=== PATIENT | female | born 1975 | race Caucasian/White ===

== ENCOUNTER 2016-11-28 05:52 | Day surgery (SDC) | payer BC ==
[~2016-11-28] VITALS: Ht 152.4 cm; Wt 100.4 kg
[2016-11-28] VITALS (7 sets, daily range): BP systolic 114–134; BP diastolic 67–86; PULSE 60–82; RESP 12–17; TEMP 97–98.3; O2SAT 94–100; Ht 152.4 cm; Wt 100.4 kg
--- OUTSIDE RECORDS SUMMARY | 2016-11-28 05:57 | XMS REPORT | Continuity of Care Document ---
Author Author [facility] Organization [facility] Address Unknown Phone Unavailable Support Name Relationship Address Phone DEREK BURNETT MD Caregiver [facility] [address] [place] [address] Unavailable DONNA BARTHOLOMEW MD Caregiver [address] [place] [address] [phone] ALANA GIRALDO Next Of Kin [address] [place] [address] Insurance Providers Payer Name Policy Number Subscriber Name Relationship Self Pay Marco Giraldo 18 Self Advance Directives Directive Response Recorded Date/Time Advanced Directives Type None 04/11/14 6:01pm Problems Medical Problems Problem Onset Date Status Elevated bilirubin Unknown Active Pancreatitis Unknown Active Abdominal pain Unknown Active Medications Medication Dose Route Sig Days/Qty Instructions Order Date Discontinued Date Status Ferrous Sulfate 160 Mg PO DAILY 06/01/12 04/11/14 Discontinued Social History Social History Problem Response Recorded Date/Time Smoking Status Unknown if ever smoked 04/11/2014 6:01pm Hx Substance Use No 04/11/2014 6:01pm Hx Alcohol Use No 04/11/2014 6:01pm Query Response Start Date Stop Date Smoking Status Former smoker Hospital Discharge Instructions No hospital discharge instructions. Plan of Care No plan of care. Functional Status Query Response Date Recorded Physical Hygiene Self April 11, 2014 6:01pm Disabilities None April 11, 2014 6:01pm Devices Used None April 11, 2014 6:01pm Dressing Self April 11, 2014 6:01pm Ambulation Self April 11, 2014 6:01pm Diet Self April 11, 2014 6:01pm Mental Status Alert Oriented April 11, 2014 6:01pm Disabilities None April 11, 2014 6:01pm Devices Used None April 11, 2014 6:01pm Physical Hygiene Self April 11, 2014 6:01pm Dressing Self April 11, 2014 6:01pm Ambulation Self April 11, 2014 6:01pm Diet Self April 11, 2014 6:01pm Allergies, Adverse Reactions, Alerts Allergen Type Severity Reaction Status Last Updated Penicillin Allergy Unknown Active 04/11/14 Immunizations Name Given Type Hx Influenza Vaccination No Historical Hx Pneumococcal Vaccination No Historical Hx Influenza Vaccination No Historical Vital Signs Acute Vital Signs Vital Response Date/Time Temperature (Fahrenheit) 98.4 deg F (96.8 - 99.1) Temperature (Calculated Celsius) 36.75694 degrees C (36.0 - 37.3) Pulse Rate (adult) 99 bpm (60 - 100) Respiratory Rate 16 breaths/min (10 - 20) O2 Sat by Pulse Oximetry 96 % (90 - 100) Blood Pressure 105/61 mm Hg Height 5 ft 0 in Weight 218 lb Body Mass Index 42.0 kg/m^2 Results Test Source Date Result Interp. Ref. Range Comments Alanine Aminotransferase (ALT/SGPT) April 11, 2014 6:33pm 172 U/L H 9- 52 Albumin April 11, 2014 6:33pm 3.7 G/DL N 3.5-5.0 Albumin/Globulin Ratio April 11, 2014 6:33pm 1.0 RATIO L 1.1-2.2 Alkaline Phosphatase April 11, 2014 6:33pm 381 U/L H 38-126 Amylase Level April 11, 2014 6:33pm 176 U/L H 30-110 Anion Gap April 11, 2014 6:33pm 12 MEQ/L N 5-15 Aspartate Amino Transf (AST/SGOT) April 11, 2014 6:33pm 85 U/L H 14-36 BUN/Creatinine Ratio April 11, 2014 6:33pm 10 RATIO N 6-26 Band Neutrophils # April 11, 2014 6:33pm 0.9 T/MM3 - Band Neutrophils % April 11, 2014 6:33pm 8.0 % H 0-6 Basophils # (Auto) October 11, 2010 11:34am 0.0 T/MM3 N 0-0.2 Basophils (%) (Auto) October 11, 2010 11:34am 0.6 % N 0-2 Blood Urea Nitrogen April 11, 2014 6:33pm 6.0 MG/DL L 7-17 Calcium Level April 11, 2014 6:33pm 9.1 MG/DL N 8.4-10.2 Calculated Osmolality April 11, 2014 6:33pm 265 MOSM/KG N 261-280 Carbon Dioxide Level April 11, 2014 6:33pm 28 MEQ/L N 22-30 Chloride Level April 11, 2014 6:33pm 98 MEQ/L N 98-107 Cholesterol Level November 07, 2009 9:20am 147 MG/DL N 132-199 Cholesterol/HDL Ratio November 07, 2009 9:20am 3.0 RATIO N 0-4.0 Cord Arterial Bld Oxygen Saturation February 12, 2008 12:05pm 54.0 % - Has specimen been collected/obtained? Y Cord Arterial Blood Base Excess February 12, 2008 12:05pm -2.4 MMOL/L L -2.0 -2.0 Has specimen been collected/obtained? Y Cord Arterial Blood HCO3 February 12, 2008 12:05pm 21 MEQ/L - Has specimen been collected/obtained? Y Cord Arterial Blood Total CO2 February 12, 2008 12:05pm 22.4 - Has specimen been collected/obtained? Y Cord Blood PO2 February 12, 2008 12:05pm 28 MMHG - Has specimen been collected/obtained? Y Cord Blood Total CO2 February 12, 2008 12:05pm 33 MEQ/L - Has specimen been collected/obtained? Y Cord Blood pH February 12, 2008 12:05pm 7.420 - Has specimen been collected/obtained? Y Creatinine April 11, 2014 6:33pm 0.6 MG/DL L 0.7-1.2 Eosinophils # (Auto) October 11, 2010 11:34am 0.1 T/MM3 N 0-0.5 Eosinophils (%) (Auto) October 11, 2010 11:34am 1.3 % N 0-4 Free Thyroxine November 07, 2009 9:20am 0.85 NG/DL N 0.78-2.19 Globulin April 11, 2014 6:33pm 3.6 G/DL N 2.4-3.6 Glucose Level April 11, 2014 6:33pm 125 MG/DL H 65-110 Hematocrit April 11, 2014 6:33pm 36.5 % N 36-46 Hemoglobin April 11, 2014 6:33pm 11.9 GM/DL L 12-16 Hepatitis B Surface Ab Concentrat January 07, 2014 1:40pm Negative - LDL Cholesterol, Calculated November 07, 2009 9:20am 85.2 N 66-159 Lipase April 11, 2014 6:33pm 742 U/L H 23-300 Lymphocytes # (Auto) October 11, 2010 11:34am 1.8 T/MM3 N 1-4.8 Lymphocytes # (Manual) April 11, 2014 6:33pm 0.9 T/MM3 L 1-4.8 Lymphocytes % (Manual) April 11, 2014 6:33pm 8.0 % L 23-45 Lymphocytes (%) (Auto) October 11, 2010 11:34am 26.7 % N 23-45 Mean Corpuscular Hemoglobin April 11, 2014 6:33pm 28.3 UUG N 26-34 Mean Corpuscular Hemoglobin Concent April 11, 2014 6:33pm 32.6 GM/DL N 31-37 Mean Corpuscular Volume April 11, 2014 6:33pm 86.7 UM3 N 80-100 Mean Platelet Volume April 11, 2014 6:33pm 10.4 UM3 N 9.4-12.4 Measles/Mumps/Rubella Immunity January 07, 2014 1:40pm - - . <0.91= Negative. 0.91 - 1.09=Equivocal . >1.09=Positive Positive results suggest response to immunization or prior exposure. Measles IgG performed at [facility], [address] [place] [address] Road Mechanic Talita Rasmussen MD Monocytes # (Auto) October 11, 2010 11:34am 0.5 T/MM3 N 0-0.8 Monocytes # (Manual) April 11, 2014 6:33pm 1.3 T/MM3 H 0-0.8 Monocytes % (Manual) April 11, 2014 6:33pm 11.0 % H 0-9.0 Monocytes (%) (Auto) October 11, 2010 11:34am 7.4 % N 0-9.0 Mumps Virus IgG Antibody January 07, 2014 1:40pm Positive - Neutrophils # (Auto) October 11, 2010 11:34am 4.3 T/MM3 N 1.8-7.7 Neutrophils # (Manual) April 11, 2014 6:33pm 8.5 T/MM3 H 1.8-7.7 Neutrophils % (Manual) April 11, 2014 6:33pm 73.0 % H 33-66 Neutrophils (%) (Auto) October 11, 2010 11:34am 64.0 % N 33-66 Platelet Count April 11, 2014 6:33pm 215 T/MM3 N 130-400 Potassium Level April 11, 2014 6:33pm 3.9 MEQ/L N 3.6-5 RDW Standard Deviation April 11, 2014 6:33pm 43.3 FL N 36.9-50.2 Red Blood Count April 11, 2014 6:33pm 4.21 M/MM3 N 4.00-5.20 Rubella Screen January 07, 2014 1:40pm Positive - Rubeola (Measles) IgG Antibody January 07, 2014 1:40pm Positive - Sodium Level April 11, 2014 6:33pm 138 MEQ/L N 134-144 Thyroid Stimulating Hormone (TSH) November 07, 2009 9:20am 2.17 MIU/ML N 0.47-4.68 Total Bilirubin April 11, 2014 6:33pm 5.00 MG/DL H 0.20-1.30 Total Protein April 11, 2014 6:33pm 7.3 G/DL N 6.3-8.2 Triglycerides Level November 07, 2009 9:20am 64 MG/DL N 35-135 Urine Bacteria April 11, 2014 6:00pm Trace H - Has specimen been collected/obtained? Y Urine Bilirubin April 11, 2014 6:00pm 3+ H - Has specimen been collected/obtained? Y Urine Blood April 11, 2014 6:00pm 2+ H - Has specimen been collected/ obtained? Y Urine Collection Type April 11, 2014 6:00pm Voided-not cc-midstr - Has specimen been collected/obtained? Y Urine Color April 11, 2014 6:00pm [place] - Has specimen been collected/obtained? Y Urine Glucose (UA) April 11, 2014 6:00pm Negative - Has specimen been collected/obtained? Y Urine Ketones April 11, 2014 6:00pm Trace H - Has specimen been collected/obtained? Y Urine Leukocyte Esterase April 11, 2014 6:00pm Negative - Has specimen been collected/obtained? Y Urine Nitrite April 11, 2014 6:00pm Negative - Has specimen been collected/obtained? Y Urine Protein April 11, 2014 6:00pm 1+ H - Has specimen been collected /obtained? Y Urine RBC April 11, 2014 6:00pm 10-20 /HPF H - Has specimen been collected/obtained? Y Urine Specific [place] April 11, 2014 6:00pm 1.020 - Has specimen been collected/obtained? Y Urine Squamous Epithelial Cells April 11, 2014 6:00pm 0-5 - Has specimen been collected/obtained? Y Urine Turbidity April 11, 2014 6:00pm Clear - Has specimen been collected/obtained? Y Urine Urobilinogen April 11, 2014 6:00pm 0.2 EU/DL - Has specimen been collected/obtained? Y Urine WBC April 11, 2014 6:00pm None seen /HPF - Has specimen been collected/obtained? Y Urine pH April 11, 2014 6:00pm 6.5 - Has specimen been collected/ obtained? Y VLDL Cholesterol November 07, 2009 9:20am 12.8 MG/DL N 0-28 Varicella-Zoster IgG Antibody January 07, 2014 1:40pm Positive - White Blood Count April 11, 2014 6:33pm 11.6 T/MM3 H 4.5-11.0 Chemistry Specimen Hemolysis April 11, 2014 6:33pm < 15 0-25 0-25: No Hemolysis.26-70: Slight Hemolysis - can falsely elevate K and Urine Protein. 71-285: Moderate Hemolysis - can falsely elevate K, Troponin I, CA 19-9, PTH, CSF GLucose, and Urine Protein, and can falsely decrease Phenytoin. 286-999: Gross Hemolysis - can falsely elevate K, Troponin I, CA 19-9, PTH, CSF Glucose, and Urine Protine, and can falsely decrease Phenytoin. Recommend specimen recollection. Lab Scanned Report January 07, 2014 7:28pm LAB TEST FORM REQUEST [id number] - HDL Cholesterol Direct November 07, 2009 9:20am 49 MG/DL N 40-60 Turbidity April 11, 2014 6:33pm < 20 0-20 Glomerular Filtration Rate Calc April 11, 2014 6:33pm 111 - Icterus Index April 11, 2014 6:33pm < 2 0-7 TB Test (QFT) January 07, 2014 1:40pm Negative - Quantiferon TB Test performed at [facility], [address] [place] [address] Road Mechanic Talita Rasmussen MD Mumps IgG Antibody Index January 07, 2014 1:40pm 4.56 OD Ratio - Mumps IgG performed at [facility], [address] [place], [place] [address]Medical Director Talita Rasmussen MD Rubeola (Measles) IgG Ab Index January 07, 2014 1:40pm 1.41 OD Ratio - Varicella-Zoster IgG Ab Index Value January 07, 2014 1:40pm 1.49 OD Ratio - Varicella Zoster IGG performed at [facility], [address] [place] [address] Road Mechanic Talita Rasmussen MD Urine Culture Urine, Clean Catch Voided November 22, 2007 7:45am Mixed Gram Positive Organisms Procedures No known history of procedures. Encounters Encounter Location Date/Time Departed Emergency Room [facility] 04/11/14 5:45pm Recent Diagnosis
--- OUTSIDE RECORDS SUMMARY | 2016-11-28 05:58 | XMS REPORT | Continuity of Care Document ---
Author Author [facility] Organization [facility] Address Unknown Phone Unavailable Support Name Relationship Address Phone GUI DUFF MD Caregiver [address] [facility] [address] [place] [address] Unavailable GIOVANNA KELLY DO Caregiver [address] [place] [address] Unavailable FORREST ORTIZ Next Of Kin [address] [place] [address] Insurance Providers Guarantor Marco Giraldo Address [address] [place] [address] CP Email DENIED TO PORTAL Payer [facility] Policy Number [id number] Subscriber's Name Forrest Ortiz Relationship 01 Spouse Group Number [id number] Advance Directives Directive Response Recorded Date/Time Ordered Resuscitation Status Full Code 10/21/16 11:41am Resuscitation Documents on File No 10/22/16 5:58am DPOA for Healthcare Only No 10/22/16 5:58am Living Will No 10/22/16 5:58am Problems Active Problems Medical Problem Onset Date Status Abdominal pain Unknown Acute Abdominal pain Unknown Acute Abdominal pain Unknown Acute Elevated bilirubin Unknown Acute Elevated bilirubin Unknown Acute Pancreatitis Unknown Acute Viral illness Unknown Acute Past Problems Medical Problem Onset Date Back muscle spasm Unknown Carpal tunnel syndrome Unknown Viral illness Unknown Medications Current Home Medications Medication Dose Units Route Directions Days Qty Instructions Start Date Hydrocodone/Acetaminophen (Merom 5-325 Tablet) 5-325 Tablet 1-2 Tab Oral Every 6 Hours as needed for Pain 20 Tablet This medication contains Tylenol , do not take more than 3,000 mg of Tylenol in a 24 hr period. 10/22/16 Ibuprofen 200 Mg Tablet 2 Tab Oral Every 4 Hours as needed for Pain 07/24/16 Polyethylene Glycol 3350 (Miralax) 17 Gm Powd.pack 17 G Oral Daily as needed for Constipation 1 Bottle Take 17 Grams (1 capful), by mouth, once a day. 10/22/16 Past Home Medications Medication Directions Ordered Status Ferrous Sulfate (Slo-Fe) 160 Mg Tablet, 160 Mg Oral Daily 06/01/12 Discontinued Social History Social History Problem Response Recorded Date/Time Onset Date Status Reason for Hospitalization Rt CTR 10/22/2016 7:47am Not Applicable Not Applicable Chewing Tobacco Status No 10/22/2016 6:00am Not Applicable Not Applicable Hx Substance Use No 10/22/2016 6:00am Not Applicable Not Applicable Hx Alcohol Use No 10/22/2016 6:00am Not Applicable Not Applicable Has the pt used tobacco in the last 12 months Yes 10/22/2016 6:00am Not Applicable Not Applicable Query Response Start Date Stop Date Smoking Status Former smoker Hospital Discharge Instructions Instructions: Care Instructions: I was in the hospital because (patient own words): RIGHT CARPAL TUNNEL Discharge Diet: Resume your normal diet as tolerated. Discharge Activity: -Exercises are to be performed 2-3 times daily. -DO NOT lift any weight heavier than a coffee cup -Gentle range of motion of the wrist Follow Up Appointments: Follow up as scheduled. Pending Lab / Results: No Pending Lab Patient Instructions: DO NOT DRIVE, OPERATE MACHINERY, DRINK ALCOHOL, OR SIGN IMPORTANT PAPERS FOR 24 HOURS OR WHILE TAKING PAIN MEDICATIONS. Expected Signs/Symptoms: There will be pain at the incision site. Expect possible wrap swelling of the fingers. The aaron may be loosened if it feels too tight. Call your physician if you are unable to feel or move your fingers. Notify Physician If: You should contact our office if you develop significant drainage from the surgical incision, redness, or fever about 102 degrees. During Business Hours:: Contact the office at [phone] After Business Hours:: After office hours, please call [facility] at [phone] and have the ribbon hanking machine operator page the physician. Pain Management/Treatment: You will be given a prescription for pain medication. You will have post-surgical pain for the first week after surgery. An anti-inflammatory medication may also be taken (mobic, ibuprofen, or naproxen). Wound/Incision Care: Keep the dressing clean and dry. On post-op day #4 you may remove the dressing. The incision needs to stay dry until you follow up with your physician. You may shower. DO NOT apply creams or ointments (bacitracin, triple antibiotic) to the incisions. Do not soak the wrist in water or go swimming until your sutures are removed. Condition at time of discharge: Good Plan of Care Discharge Date 10/22/16 8:55am Prescriptions See Medication Section Functional Status Query Response Date Recorded Ability to complete ADL's impeded by No change October 22, 2016 5:58am Allergies, Adverse Reactions, Alerts Allergen Type Severity Reaction Status Last Updated Penicillin Allergy Unknown RASH Active 10/17/16 Immunizations Query Response on File Recorded Date/Time Hx Influenza Vaccination Y MAY 2016 10/22/16 6:00am Hx Pneumococcal Vaccination No 10/22/16 6:00am Hx Influenza Vaccination Y MAY 2016 10/22/16 6:00am DTaP Vaccine History UP TO DATE PER PT 07/24/16 6:10pm Influenza Vaccine Hx 06/0207/24/16 6:10pm Tetanus Diptheria Vaccine History UPT TO DATE PER PT 07/24/16 6:10pm Vital Signs Acute Vital Signs Vital Response Date/Time Temperature (Fahrenheit) 97.6 deg F (96.8 - 99.1) 10/22/2016 8:05am Temperature (Calculated Celsius) 36.86117 degrees C (36.0 - 37.3) 10/22/2016 8:05am Temperature Source Oral 10/22/2016 8:05am Pulse Rate (adult) 68 bpm (60 - 100) 10/22/2016 8:48am Respiratory Rate 16 breaths/min (10 - 20) 10/22/2016 8:48am O2 Sat by Pulse Oximetry 100 % (90 - 100) 10/22/2016 8:48am Oxygen Delivery Method Room Air 10/22/2016 8:48am Blood Pressure 109/59 mm Hg 10/22/2016 8:48am Blood Pressure Source Automatic Cuff 10/22/2016 8:48am Height (Feet) 5 feet 10/22/2016 5:52am Height (Inches) 0.00 inches 10/22/2016 5:52am Weight (Kilograms) 100.800 kg 10/22/2016 5:52am Body Mass Index (BMI) 43.4 10/22/2016 5:52am Results Laboratory Results Test Name Result Units Flags Reference Collection Date/Time Result Date/ Time Comments White Blood Count 8.9 T/MM3 4.5-11.0 07/24/2016 5:17pm 07/24/2016 5: 36pm Red Blood Count 4.34 M/MM3 4.00-5.20 07/24/2016 5:17pm 07/24/2016 5: 36pm Hemoglobin 12.5 GM/DL 12-16 07/24/2016 5:07/24/2016 5:36pm Hematocrit 39.0 % 36-46 07/24/2016 5:07/24/2016 5:36pm Mean Corpuscular Volume 89.9 UM3 80-100 07/24/2016 5:07/24/2016 5: 36pm Mean Corpuscular Hemoglobin 28.8 UUG 26-34 07/24/2016 5:2015 5:36pm Mean Corpuscular Hemoglobin Concent 32.1 GM/DL 31-37 07/24/2016 5:07/24/2016 5:36pm RDW Standard Deviation 42.2 FL 36.9-50.2 07/24/2016 5:07/24/2016 5 :36pm Platelet Count 263 T/MM3 130-400 07/24/2016 5:07/24/2016 5:36pm Mean Platelet Volume 10.3 UM3 9.4-12.4 07/24/2016 5:07/24/2016 5: 36pm Neutrophils (%) (Auto) 67.6 % H 33-66 07/24/2016 5:07/24/2016 5: 36pm Lymphocytes (%) (Auto) 25.7 % 23-45 07/24/2016 5:07/24/2016 5: 36pm Monocytes (%) (Auto) 5.5 % 0-9.0 07/24/2016 5:07/24/2016 5:36pm Eosinophils (%) (Auto) 0.8 % 0-4 07/24/2016 5:07/24/2016 5:36pm Basophils (%) (Auto) 0.3 % 0-2 07/24/2016 5:07/24/2016 5:36pm Immature Granulocyte % (Auto) 0.1 % 0.0-0.5 07/24/2016 5:2015 5:36pm Absolute Neutrophils (auto) 6.0 T/MM3 1.8-7.7 07/24/2016 5:2015 5:36pm Absolute Lymphocytes (auto) 2.3 T/MM3 1-4.8 07/24/2016 5:17pm 2015 5:36pm Absolute Monocytes (auto) 0.5 T/MM3 0-0.8 07/24/2016 5:17pm 07/24/2016 5:36pm Absolute Eosinophils (auto) 0.1 T/MM3 0-0.5 07/24/2016 5:17pm 2015 5:36pm Absolute Basophils (auto) 0.0 T/MM3 0-0.2 07/24/2016 5:17pm 07/24/2016 5:36pm Absolute Immature Granulocyte (auto 0.01 T/MM3 0.00-0.03 07/24/2016 5: 1707/24/2016 5:36pm Icterus Index < 2 0-7 07/24/2016 5:pm 07/24/2016 5:48pm Chemistry Specimen Hemolysis < 15 0-25 07/24/2016 5:07/24/2016 5 :48pm 0-25: Specimen Exhibited No Hemolysis. Turbidity < 20 0-20 07/24/2016 5:17pm 07/24/2016 5:48pm Sodium Level 145 MEQ/L H 134-144 07/24/2016 5:1707/24/2016 5:48pm Potassium Level 4.2 MEQ/L 3.6-5 07/24/2016 5:17pm 07/24/2016 5:48pm Chloride Level 103 MEQ/L 98-107 07/24/2016 5:07/24/2016 5:48pm Carbon Dioxide Level 28 MEQ/L 22-30 07/24/2016 5:07/24/2016 5: 48pm Anion Gap 14 MEQ/L 5-15 07/24/2016 5:17pm 07/24/2016 5:48pm Blood Urea Nitrogen 8.0 MG/DL 7-17 07/24/2016 5:17pm 07/24/2016 5:48pm Creatinine 0.6 MG/DL L 0.7-1.2 07/24/2016 5:17pm 07/24/2016 5:48pm BUN/Creatinine Ratio 13 RATIO 6-26 07/24/2016 5:1707/24/2016 5:48pm Glomerular Filtration Rate Calc 110 07/24/2016 5:17pm 07/24/2016 5: 48pm Glucose Level 97 MG/DL 65-110 07/24/2016 5:17pm 07/24/2016 5:48pm Calculated Osmolality 277 MOSM/KG 261-280 07/24/2016 5:pm 07/24/2016 5:48pm Calcium Level 9.7 MG/DL 8.4-10.2 07/24/2016 5:17pm 07/24/2016 5:48pm Total Bilirubin 0.70 MG/DL 0.20-1.30 07/24/2016 5:pm 07/24/2016 5: 48pm Alkaline Phosphatase 80 U/L 38-126 07/24/2016 5:pm 07/24/2016 5:48pm Total Protein 8.2 G/DL 6.3-8.2 07/24/2016 5:pm 07/24/2016 5:48pm Albumin 4.4 G/DL 3.5-5.0 07/24/2016 5:07/24/2016 5:48pm Globulin 3.8 G/DL H 2.4-3.6 07/24/2016 5:pm 07/24/2016 5:48pm Albumin/Globulin Ratio 1.2 RATIO 1.1-2.2 07/24/2016 5:07/24/2016 5 :48pm Aspartate Amino Transf (AST/SGOT) 27 U/L 14-36 07/24/2016 5:pm 2015 5:48pm Alanine Aminotransferase (ALT/SGPT) 39 U/L 9-52 07/24/2016 5:07/24 5:48pm C-Reactive Protein 21.4 MG/L H 0-9 07/24/2016 5:07/24/2016 5:48pm Urine Collection Type VOIDED-NOT CC-MIDSTR 07/24/2016 5:2015 5:27pm Urine Color YELLOW YELLOW 07/24/2016 5:07/24/2016 5:27pm Urine Turbidity CLEAR CLEAR 07/24/2016 5:10pm 07/24/2016 5:27pm Urine Specific [place] <=1.005 L 1.015-1.025 07/24/2016 5:2015 5:27pm Urine pH 5.5 5.0-8.0 07/24/2016 5:10pm 07/24/2016 5:27pm Urine Leukocyte Esterase NEGATIVE NEGATIVE 07/24/2016 5:10pm 2015 5:27pm Urine Nitrite NEGATIVE NEGATIVE 07/24/2016 5:10pm 07/24/2016 5:27pm Urine Protein NEGATIVE NEGATIVE 07/24/2016 5:10pm 07/24/2016 5:27pm Urine Glucose (UA) NEGATIVE NEGATIVE 07/24/2016 5:10pm 07/24/2016 5: 27pm Urine Ketones NEGATIVE NEGATIVE 07/24/2016 5:10pm 07/24/2016 5:27pm Urine Urobilinogen 0.2 EU/DL NORMAL 07/24/2016 5:10pm 07/24/2016 5: 27pm Urine Bilirubin NEGATIVE NEGATIVE 07/24/2016 5:10pm 07/24/2016 5: 27pm Urine Blood TRACE-INTACT A NEGATIVE 07/24/2016 5:10pm 07/24/2016 5: 27pm Urinalysis Comment MICROSCOPIC NOT IND. 07/24/2016 5:10pm 2015 5:27pm Procedures Procedure Status Date Provider(s) Routine venipuncture Completed 07/24/16 Ct neck spine w/o dye Completed 07/24/16 Comprehen metabolic panel Completed 07/24/16 Urinalysis auto w/o scope Completed 07/24/16 Urine test Completed 07/24/16 Complete cbc w/auto diff wbc Completed 07/24/16 C-reactive protein Completed 07/24/16 Ther/proph/diag inj iv push Completed 07/24/16 Emergency dept visit Completed 07/24/16 [id number]"INJECTION, KETOROLAC TROMETHAMINE, PER 15 MG" Completed 07/24/16 Compound Drug, Not Otherwise Classified Completed 07/24/16 Carpal tunnel release, right Completed 10/22/16 GUI DUFF MD Encounters Encounter Location Arrival/Admit Date Discharge/Depart Date Attending Provider Departed Surgical Day Care [facility] 10/22/16 5:31am 10/22/16 8: 55am GUI DUFF MD Departed Emergency Room [facility] 07/24/16 4:23pm 07/24/16 6: 57pm BRYAN FORBES MD
--- NOTE | 2016-11-28 06:31 | ANESPREOP ---
ERIC IBARRA Grady VALDEZ 11/28/16 0631: Anesthesia Record Date and Time DATE: 11/28/16 TIME: 06:29 Proposed Surgical Procedure LT CTR NPO since: 11/27/16 Allergies: Coded Allergies: Penicillins (Verified Allergy, Unknown, RASH, 10/17/16) From admission orders Ht/Wt/BMI Height: 5 ' 0.00 " Weight: 100.400 kg BMI: 43.2 kg/m2 Vital Signs Date Time Temp Pulse Resp B/P Pulse Ox O2 Delivery O2 Flow Rate FiO2 11/28/16 06:10 98.3 73 14 134/82 97 Room Air Medications Inpatient Medications Current Medications Medications (Trade) Dose Ordered Sig/Cira Start Time Stop Time Status Last Admin Dose Admin Lactated Ringer's (Lactated Ringers) 1,000 ml @ 50 mls/hr Q20H 11/28/16 07:00 No Active Prescriptions or Reported Meds Currently on Beta Wendy: No Medical/Surgical History Anesthesia PMH: Reports: Headaches (1-2x per month), Sleep Apnea (-NOT DX) Smoking Status: Former smoker Has pt. smoked today?: No Use Chewing Tobacco?: No Second Hand Exposure: No Substance Use Type: does not use Alcohol Intake: other Last Drink: days (ago) Past Surgical History Orthopedic Surgeries: Yes - Rt CTR Abdominal Surgeries: Yes - Gallbladder with tumor removed, BILE DUCT RECONST,- per last admit Genitourinary Surgeries: Yes - CYSTO DIL- per last admit Cardiac Surgeries: No Endocrine Surgeries: No Reproductive Surgeries: Yes - TUBAL LIGATION- per last admit Neurological Surgeries: No Ear Surgeries: No Nose Surgeries: No Throat Surgeries: No Other Surgeries: Yes - CYSTO DIL- per last admit Anesthesia Adverse Reactions: FOUND nausea and vomiting Pertinent Findings Test 11/28/16 06:00 Urine Test Negative (NEGATIVE) EKG Rhythm: Sinus Rhythm Physical Exam Respiratory: Bilat breath sounds equal, Lungs clear Cardiovascular: FOUND Regular rate, rhythm Airway Assessment Mallampati Score: II TMD: 3 Fingerbreadths Neck Extension: Good Overall Assessment: No Airway Concerns ASA: 2 Discussion Discussed risks/options/alternatives of anesthesia and questions answered. Patient consents. Nursing pain assessment noted. Attestation Statement Prior to the delivery of any anesthetic medication, I examined the patient, developed the plan, obtained the patient's consent and discussed the risk and benefits of the procedure with the patient/guardian. CRISTINA VERGARA CRNA 11/28/16 0655: Anesthesia Record Allergies: Coded Allergies: Penicillins (Verified Allergy, Unknown, RASH, 10/17/16) From admission orders Medications No Active Prescriptions or Reported Meds ASA: 3 ERIC IBARRA Nov 28, 2016 06:31 CRISTINA VERGARA CRNA Nov 28, 2016 06:55
[2016-11-28] MEDS ORDERED: LIDOCAINE 1%/EPI 1:100,000 20ml MDV ONE (06:54)
[2016-11-28] MEDS ORDERED: BUPIVACAINE 0.25% (2.5mg/ml) INJ 30ml SDV ONE (06:54)
[2016-11-28] MEDS ORDERED: LR 1,000 ML IV SCH (07:00)
[2016-11-28] MEDS ORDERED: LIDOCAINE 1% (10mg/ml) 2ml SDV INJ ONE (07:00)
[2016-11-28] MEDS ORDERED: PROPOFOL 500mg 50 ML IV ONE (07:22)
[2016-11-28] MEDS ORDERED: FENTANYL 100mcg/2ml INJECTION ONE (07:22)
[2016-11-28] MEDS ORDERED: KETAMINE 500mg/10ml INJECTION ONE (07:29)
[2016-11-28] MEDS ORDERED: TRAM50TA53 PO (07:42)
[2016-11-28] MEDS ORDERED: POLY17PO6 PO (07:59)
[2016-11-28] MEDS ORDERED: HYDR-4246 PO (07:59)
[2016-11-28] MEDS ORDERED: CLINDAMYCIN 600mg IVPB 50 ML IV ONE (08:00)
--- NOTE | 2016-11-28 08:00 | PDOPERATE ---
Operative Report Date of Operation 11/28/16 Side: Left Preoperative Diagnosis: carpal tunnel syndrome Postoperative Diagnosis Same as preoperative diagnosis. Operation/Procedure: carpal tunnel release (left) Surgeon Jennifer Barajas MD Final Canoe Inspector CATIE Almanza Complications None. Anesthesia Plan: TIVA Estimated Blood Loss See Anesthesia Record. Fluids Please See Anesthesia Record. Description of Operation Ms. Mccoy and her left wrist were identified and marked in the the preoperative holding area. She was then brought back to the operating suite and proper anesthesia was administered. She was then positioned supine on the operating table. The left upper extremity was then prepped and draped in my normal sterile fashion. Timeout was performed with all operating room personnel. The incision site was injected with 0.25% Marcaine and 1% Lidocaine. The arm was exsanguinated, and the tourniquet was inflated to 250 mmHg. A 2.5 cm incision was made just ulnar to the thenar crease. Sharp dissection was carried down through the skin and subcutaneous fat, down to the palmar fascia and down to the transverse carpal ligament which was then excised under direct visualization, first with a scalpel and then completed both proximally and distally with scissors under direct visualization until all tight bands were released around the nerve. The wound was then irrigated, and the incision was closed with a 3-0 nylon in simple interrupted fashion. A sterile soft dressing was placed. The tourniquet was let down. The patient was allowed to awaken from anesthesia and was taken to the recovery room under the care of Anesthesia. The patient tolerated the procedure well. There were no complications. GUI BARAJAS MD Nov 28, 2016 08:00
--- NOTE | 2016-11-28 08:33 | ANESPO ---
Post-Op Note Date 11/28/16 Time: 08:33 Status Pt Participated in Evaluation: Pt participated in person Vital Signs Date Time Temp Pulse Resp B/P Pulse Ox O2 Delivery O2 Flow Rate FiO2 11/28/16 08:14 69 14 115/67 94 Room Air 11/28/16 07:59 97.0 6.00 Respiratory Function: Airway patent, Regular respirations Cardiovascular Function: Regular pulse Telemetry Pattern: SR Mental Status: Alert/oriented Pain Level Intensity: 0 Unable to Assess Pain Due To: Pt Sleeping Hydration: Taking po fluids Complications during Recovery None apparent Follow-Up Instructions Instructions Per Surgeon CRISTINA VERGARA CRNA Nov 28, 2016 08:33
== END 2016-11-28 08:27 | disposition home or self-care (01) ==
LOC: SCU 05:52
PROVIDERS: ATTEND Orthopaedic Surgery
DX: G56.02 Carpal tunnel syndrome, left upper limb (principal); I10 Essential (primary) hypertension; F17.210 Nicotine dependence, cigarettes, uncomplicated; Z88.0 Allergy status to penicillin
CPT/HCPCS: 81025

== ENCOUNTER → 2016-12-02 | Outpatient (CLI) | payer BC ==
[~2016-12-02] MED LIST: HYDR-4246 PO; POLY17PO6 PO
--- NOTE | 2016-12-02 12:01 | DI ---
EXAM: WRIST RIGHT 3-4 VIEWS LOCATION OF DICTATION: [facility] HISTORY: ITS.REASON: M25.531 PAIN IN RIGHT WRIST COMPARISON: No prior studies available for comparison. FINDINGS: Normal alignment of the wrist joint. There is no evidence for dislocation or subluxation. There are no acute fractures. No significant degenerative arthrosis. Normal osseous mineralization. The surrounding soft tissues are normal. IMPRESSION: 1. No evidence for acute fracture or malalignment. 2. No significant degenerative arthrosis. .
== END ==
LOC: IMA 11:01
PROVIDERS: ATTEND Orthopaedic Surgery
DX: M25.531 Pain in right wrist (principal)